=== PATIENT | male | born 1990 | race African-American/Black ===

== ENCOUNTER 2018-06-27 04:47 | Emergency (ER) | payer SELFPAY ==
[~2018-06-27] VITALS: Ht 188 cm; Wt 77.2 kg
[2018-06-27] MEDS ORDERED: TRAMADOL HCL50 MG PO (05:24)
[2018-06-27] MEDS ORDERED: AMOXICILLIN500 MG PO (05:24)
[2018-06-27] MEDS ORDERED: MOTRIN800 MG PO (05:24)
[2018-06-27 05:30] VITALS: BP 134/80
== END 2018-06-27 05:30 | disposition home or self-care (01) | DRG 159 ==
LOC: ED 04:47
DX: K04.7 Periapical abscess without sinus (principal); K02.9 Dental caries, unspecified; K08.89 Other specified disorders of teeth and supporting structures; F17.210 Nicotine dependence, cigarettes, uncomplicated

== ENCOUNTER 2019-01-24 17:08 | Emergency (ER) | payer OTHER ==
[~2019-01-24] VITALS: Ht 188 cm; Wt 68.0 kg
[~2019-01-24 17:08] MED LIST: AMOXICILLIN500 MG PO; MOTRIN800 MG PO; TRAMADOL HCL50 MG PO
[2019-01-24 18:30] VITALS: BP 110/74
[2019-01-24] MEDS ORDERED: CORTISPORIN OTI10 M2 AS (18:38)
== END 2019-01-24 18:54 | disposition home or self-care (01) ==
LOC: ED 17:08
DX: T16.2XXA Foreign body in left ear, initial encounter (principal); H60.92 Unspecified otitis externa, left ear; F17.210 Nicotine dependence, cigarettes, uncomplicated; X58.XXXA Exposure to other specified factors, initial encounter

== ENCOUNTER 2019-05-02 09:04 | Emergency (ER) | payer OTHER ==
[~2019-05-02] VITALS: Ht 188 cm; Wt 90.0 kg
[~2019-05-02 09:04] MED LIST changes: +CORTISPORIN OTI10 M2 AS
[2019-05-02 09:24] LABS: HEMATOCRIT 35.8 % (39.0-50.0); HEMOGLOBIN 11.8 g/dl (14.0-18.0); IMMATURE GRANULOCYTES 0.5 % (0.0-5.0); MEAN CELL VOLUME 95.2 fL CALC (80.0-100.0); MEAN CORPUSCULAR HGB 31.4 pG CALC (26.0-32.0); NEUT# 5.68 thou/uL (1.82-7.42); RED BLOOD COUNT 3.76 mill/uL (4.70-6.10); RED CELL DISTRI WIDTH 13.2 % (11.5-15.5)
[2019-05-02 09:39] LABS: ALBUMIN 4.3 g/dL (3.2-5.0); ALKALINE PHOSPHATASE 56 u/l (38-126); ANION GAP 12 (6-22 (CALC)); BILIRUBIN, TOTAL 0.2 mg/dL (0.0-1.4); BUN 22 mg/dL (9-20); BUN/CREATININE RATIO 20 (12-20 (CALC)); CARBON DIOXIDE 26 mmol/l (22-30); CHLORIDE 104 mmol/l (95-108); CREATININE 1.1 mg/dL (0.7-1.3); GFR > 60 ML/MIN (>=60 (CALC)); GFR FOR AFR.AMER. > 60 ML/MIN (>=60 (CALC)); POTASSIUM 4.8 mmol/l (3.5-5.1); SGOT/AST 39 u/l (17-59); SODIUM 137 mmol/l (137-146)
[2019-05-02 09:42] LABS: ETHYL ALCOHOL 0 mg/dl (0-30)
[2019-05-02 11:26] LABS: URINE BILIRUBIN - DIPSTICK NEGATIVE (NEGATIVE); URINE BLOOD DIPSTICK NEGATIVE (NEGATIVE); URINE COLOR YELLOW; URINE GLUCOSE - DIPSTICK NEGATIVE (NEGATIVE); URINE KETONE NEGATIVE (NEGATIVE); URINE LEUK ESTERASE NEGATIVE (NEGATIVE); URINE NITRITE - DIPSTICK NEGATIVE (Negative); URINE PROTEIN - DIPSTICK NEGATIVE (NEG-TRACE); URINE UROBILINOGEN - DIPSTICK 0.2 E.U./dL (0.2)
[2019-05-02 11:30] LABS: BARBITURATES NEGATIVE (NEGATIVE); COCAINE NEGATIVE (NEGATIVE); METHADONE NEGATIVE (NEGATIVE); OXCYCODONE NEGATIVE (NEGATIVE); TETRAHYDROCANNABIONOL POSITIVE (NEGATIVE); TRICYLIC ANTIDEPRESSANTS NEGATIVE (NEGATIVE)
[2019-05-02 13:23] VITALS: BP 110/72
== END 2019-05-02 13:28 | disposition home or self-care (01) ==
LOC: ED 09:04
PROVIDERS: Family Medicine
DX: F12.90 Cannabis use, unspecified, uncomplicated (principal); F15.90 Other stimulant use, unspecified, uncomplicated; E86.0 Dehydration; F17.210 Nicotine dependence, cigarettes, uncomplicated; R41.82 Altered mental status, unspecified; R94.31 Abnormal electrocardiogram [ECG] [EKG]

== ENCOUNTER 2019-12-15 | Emergency (ER) | payer OTHER ==
[2019-12-15 02:24] LABS: HEMATOCRIT 37.8 % (39.0-50.0); HEMOGLOBIN 12.6 g/dl (14.0-18.0); IMMATURE GRANULOCYTES 0.3 % (0.0-5.0); MEAN CELL VOLUME 94.3 fL CALC (80.0-100.0); MEAN CORPUSCULAR HGB 31.4 pG CALC (26.0-32.0); MEAN CORPUSCULAR HGB CONC 33.3 g/dL CAL (32.0-36.0); NEUT# 12.01 thou/uL (1.82-7.42); RED BLOOD COUNT 4.01 mill/uL (4.70-6.10); RED CELL DISTRI WIDTH 12.8 % (11.5-15.5)
[2019-12-15 02:44] LABS: ALBUMIN 4.7 g/dL (3.2-5.0); ALKALINE PHOSPHATASE 55 u/l (38-126); AMYLASE 72 u/l (30-110); ANION GAP 11 (6-22 (CALC)); BUN 19 mg/dL (9-20); BUN/CREATININE RATIO 20 (12-20 (CALC)); CARBON DIOXIDE 29 mmol/l (22-30); CHLORIDE 102 mmol/l (95-108); CREATININE 0.9 mg/dL (0.7-1.3); GFR > 60 ML/MIN (>=60 (CALC)); GFR FOR AFR.AMER. > 60 ML/MIN (>=60 (CALC)); LIPASE 65 u/l (23-300); POTASSIUM 4.2 mmol/l (3.5-5.1); SGOT/AST 66 u/l (17-59); SODIUM 137 mmol/l (137-146); TOTAL PROTEIN 7.6 g/dL (6.3-8.2)
[2019-12-15 02:51] LABS: BILIRUBIN, TOTAL 0.5 mg/dL (0.0-1.4)
[2019-12-15 02:55] LABS: MYOGLOBIN 87 ng/mL (0 - 121)
[2019-12-15 04:16] LABS: URINE BILIRUBIN - DIPSTICK NEGATIVE (NEGATIVE); URINE BLOOD DIPSTICK NEGATIVE (NEGATIVE); URINE COLOR YELLOW; URINE GLUCOSE - DIPSTICK NEGATIVE (NEGATIVE); URINE KETONE NEGATIVE (NEGATIVE); URINE LEUK ESTERASE NEGATIVE (NEGATIVE); URINE NITRITE - DIPSTICK NEGATIVE (Negative); URINE PH 5.5 (4.5-8.0); URINE PROTEIN - DIPSTICK NEGATIVE (NEG-TRACE); URINE SPECIFIC GRAVITY >=1.030; URINE UROBILINOGEN - DIPSTICK 0.2 E.U./dL (0.2)
[2019-12-15 04:17] LABS: BARBITURATES NEGATIVE (NEGATIVE); COCAINE NEGATIVE (NEGATIVE); METHADONE NEGATIVE (NEGATIVE); TETRAHYDROCANNABIONOL POSITIVE (NEGATIVE); TRICYLIC ANTIDEPRESSANTS NEGATIVE (NEGATIVE)
[2019-12-15 04:18] LABS: OXCYCODONE NEGATIVE (NEGATIVE)
[2019-12-15] MEDS ORDERED: AMOXICILLIN500 MG PO (05:29)
== END 2019-12-15 05:40 | disposition home or self-care (01) ==
PROVIDERS: Emergency Medicine
DX: F19.10 Other psychoactive substance abuse, uncomplicated (principal); J02.0 Streptococcal pharyngitis; F17.200 Nicotine dependence, unspecified, uncomplicated; Z20.828 Contact with and (suspected) exposure to other viral communicable diseases

== ENCOUNTER 2020-04-30 10:16 | Emergency (ER) | payer OTHER ==
[~2020-04-30] VITALS: Ht 185.4 cm; Wt 88.6 kg
[2020-04-30 12:04] VITALS: BP 126/79
== END 2020-04-30 11:55 | disposition home or self-care (01) ==
LOC: ED 10:16
DX: S91.112A Laceration without foreign body of left great toe without damage to nail, initial encounter (principal); F17.200 Nicotine dependence, unspecified, uncomplicated; W22.09XA Striking against other stationary object, initial encounter; Y93.55 Activity, bike riding

== ENCOUNTER 2020-09-28 21:54 | Emergency (ER) | payer OTHER ==
[~2020-09-28] VITALS: Ht 185.4 cm; Wt 82.0 kg
[2020-09-28 22:18] LABS: HEMATOCRIT 35.7 % (39.0-50.0); HEMOGLOBIN 11.5 g/dl (14.0-18.0); IMMATURE GRANULOCYTES 0.4 % (0.0-5.0); MEAN CELL VOLUME 96.5 fL CALC (80.0-100.0); MEAN CORPUSCULAR HGB 31.1 pG CALC (26.0-32.0); MEAN CORPUSCULAR HGB CONC 32.2 g/dL CAL (32.0-36.0); NEUT# 4.62 thou/uL (1.82-7.42); RED BLOOD COUNT 3.7 mill/uL (4.70-6.10); RED CELL DISTRI WIDTH 13.2 % (11.5-15.5)
[2020-09-28 22:49] LABS: ALBUMIN 4.5 g/dL (3.2-5.0); ALKALINE PHOSPHATASE 51 u/l (38-126); ANION GAP 9 (6-22 (CALC)); BILIRUBIN, TOTAL 0.4 mg/dL (0.0-1.4); BUN 15 mg/dL (9-20); BUN/CREATININE RATIO 15 (12-20 (CALC)); CARBON DIOXIDE 30 mmol/l (22-30); CHLORIDE 103 mmol/l (95-108); ETHYL ALCOHOL 0 mg/dl (0-30); GFR > 60 ML/MIN (>=60 (CALC)); GFR FOR AFR.AMER. > 60 ML/MIN (>=60 (CALC)); POTASSIUM 4.2 mmol/l (3.5-5.1); SGOT/AST 47 u/l (17-59); SODIUM 138 mmol/l (137-146); TOTAL PROTEIN 7.4 g/dL (6.3-8.2)
[2020-09-28 23:00] LABS: MYOGLOBIN 92 ng/mL (0 - 121)
[2020-09-28 23:53] LABS: URINE BILIRUBIN - DIPSTICK NEGATIVE (NEGATIVE); URINE BLOOD DIPSTICK NEGATIVE (NEGATIVE); URINE COLOR YELLOW; URINE GLUCOSE - DIPSTICK NEGATIVE (NEGATIVE); URINE KETONE NEGATIVE (NEGATIVE); URINE LEUK ESTERASE NEGATIVE (NEGATIVE); URINE NITRITE - DIPSTICK NEGATIVE (Negative); URINE PROTEIN - DIPSTICK NEGATIVE (NEG-TRACE); URINE SPECIFIC GRAVITY >=1.030; URINE UROBILINOGEN - DIPSTICK 0.2 E.U./dL (0.2)
[2020-09-29 00:40] VITALS: BP 122/68
== END 2020-09-29 00:48 | disposition home or self-care (01) ==
LOC: ED 21:54
PROVIDERS: Family Medicine
DX: S20.211A Contusion of right front wall of thorax, initial encounter (principal); F19.10 Other psychoactive substance abuse, uncomplicated; V18.0XXA Pedal cycle driver injured in noncollision transport accident in nontraffic accident, initial encounter; Y93.55 Activity, bike riding; Y92.410 Unspecified street and highway as the place of occurrence of the external cause

== ENCOUNTER 2020-12-29 18:26 | Emergency (ER) | payer OTHER ==
[~2020-12-29] VITALS: Ht 185.4 cm; Wt 81.8 kg
[2020-12-29] MEDS ORDERED: KEFLEX500 MG PO (19:59)
[2020-12-29] MEDS ORDERED: BACTRIM DS1 TAB PO (19:59)
[2020-12-29 20:20] VITALS: BP 133/61
== END 2020-12-29 20:29 | disposition home or self-care (01) ==
LOC: ED 18:26
DX: L02.01 Cutaneous abscess of face (principal); L02.214 Cutaneous abscess of groin; L02.211 Cutaneous abscess of abdominal wall; B95.62 Methicillin resistant Staphylococcus aureus infection as the cause of diseases classified elsewhere; F17.210 Nicotine dependence, cigarettes, uncomplicated

== ENCOUNTER 2021-03-10 18:09 | Emergency (ER) | payer OTHER ==
[~2021-03-10 18:09] MED LIST changes: +BACTRIM DS1 TAB PO; +KEFLEX500 MG PO
[2021-03-10] MEDS ORDERED: BACTROBAN TOP (19:44)
[2021-03-10] MEDS ORDERED: KEFLEX500 MG PO (19:44)
[2021-03-10 20:30] VITALS: BP 156/70
== END 2021-03-10 20:30 | disposition home or self-care (01) ==
LOC: ED 18:09
DX: L02.01 Cutaneous abscess of face (principal); F15.10 Other stimulant abuse, uncomplicated; F17.200 Nicotine dependence, unspecified, uncomplicated; B95.62 Methicillin resistant Staphylococcus aureus infection as the cause of diseases classified elsewhere

== ENCOUNTER 2021-05-19 12:54 | Emergency (ER) | payer OTHER ==
[~2021-05-19] VITALS: Ht 185.4 cm; Wt 86.4 kg
[~2021-05-19 12:54] MED LIST changes: +BACTROBAN TOP
[2021-05-19] MEDS ORDERED: KEFLEX500 MG PO (13:52)
[2021-05-19 14:24] VITALS: BP 142/75
== END 2021-05-19 14:24 | disposition home or self-care (01) ==
LOC: ED 12:54
DX: S91.032A Puncture wound without foreign body, left ankle, initial encounter (principal); F17.210 Nicotine dependence, cigarettes, uncomplicated; W22.8XXA Striking against or struck by other objects, initial encounter; Y93.55 Activity, bike riding